=== PATIENT | male | born 1995 | race Caucasian/White ===

== ENCOUNTER 2020-05-25 19:12 | Emergency (ER) | payer MEDICAID ==
--- NOTE | 2020-05-25 20:10 | EDM.PDOC ---
<Oscar Bui - Last Filed: 05/25/20 23:09> ED HPI GENERAL MEDICAL PROBLEM - General Chief Complaint: Gastrointestinal Problem Stated Complaint: VOMITTING BLOOD Time Seen by Provider: 05/25/20 19:14 - Related Data Allergies Allergy/AdvReac Type Severity Reaction Status Date / Time No Known Allergies Allergy Verified 05/25/20 20:10 Home Meds: Home Meds . [No Known Home Meds] 05/25/20 [History] Course - Re-Assessments/Exams Free Text/Narrative Re-Assessment/Exam: 05/25/20 23:09 Dr. Burden at [facility] agrees for transfer. Departure - Departure Time of Disposition: 23:09 Disposition: DC/Tfer to [facility] 02 Clinical Impression: Chronic alcohol use Hematemesis Qualifiers: Nausea presence: with nausea Qualified Code(s): K92.0 - Hematemesis - Discharge Information Referrals: PCP,None [Primary Care Provider] - Forms: ED Department Discharge Critical Care Note - Critical Care Note Total Time (mins): 35 <Priya Miles - Last Filed: 05/27/20 10:07> ED HPI GENERAL MEDICAL PROBLEM - General Source of Information: Reports: Patient History Limitations: Reports: No Limitations - History of Present Illness INITIAL COMMENTS - FREE TEXT/NARRATIVE: HISTORY AND PHYSICAL: History of present illness: Patient is a 25-year-old male presenting to the ED for concerns of vomiting blood 3.5 hours prior to arrival to the ED Patient states that he is a daily alcohol user, consuming on average 1 pint of vodka per day for "at least" the last 5 years. Patient states that at around 1700 on 05/25/20 he experienced 1 episode of bright red bloody vomiting -"about a mouthful." He states that he has felt nauseous all day but denies any other symptoms. Patient denies the use of any [id number] medications to relieve his symptoms. Patient denies any history of alcohol withdrawal after abstaining from alcohol. Patient reports his last drink at around 14:00 today. Patient denies any recent head trauma or loss of consciousness. Patient denies fever, chills, chest pain, shortness of breath, or cough. Denies headache, neck stiff ness, change in vision, syncope, or near syncope. Denies abdominal pain, diarrhea, constipation, or dysuria. Has not noted any blood in urine. Patient states he has been eating and drinking appropriately -last meal reported was "eggs" at around 1000. Review of systems: As per history of present illness and below otherwise all systems reviewed and negative. Past medical history: As per history of present illness and as reviewed below otherwise noncontributory. Surgical history: As per history of present illness and as reviewed below otherwise noncontr ibutory. Social history: See social history for further information Family history: As per history of present illness and as reviewed below otherwise noncontributory. Physical exam: General: Patient is alert, oriented, and in no acute distress. Patient is mildly tremulous without tongue fasciculations. Patient sitting comfortably on exam table. Vitals stable and reviewed by me. HEENT: Atraumatic, normocephalic, pupils equal and reactive bilaterally, negative for conjunctival pallor or scleral icterus, mucous membranes moist, TMs normal bilaterally, throat clear, neck supple, nontender, trachea midline. No drooling or trismus noted. No meningeal signs. No hot potato voice noted. Lungs: Clear to auscultation, breath sounds equal bilaterally, chest nontender. Heart: S1S2, regular rate and rhythm without overt murmur Abdomen: Soft, nondistended, nontender. Negative for masses or hepatosplenomegaly. Negative for costovertebral tenderness. Pelvis: Stable nontender. Genitourinary: Deferred. Rectal: Deferred. Skin: Intact, warm, dry. No lesions or rashes noted. Extremities: Atraumatic, negative for cords or calf pain. Neurovascular unremarkable. Neuro: Awake, alert, oriented. Cranial nerves II through XII unremarkable. Cerebellum unremarkable. Motor and sensory unremarkable throughout. Exam nonfocal. Notes: Patient had another episode of bright red/dark red hematemesis at 2109. CIWA score 7. Patient declines a rectal exam / Hemoccult. Dr. Bui has assumed care of johnathan and will follow remaining diagnostics and disposition for patient. Diagnostics: CBC, CMP, lipase, type and screen, Repeat H&H, UA Therapeutics: Banana bag, Zofran, Protonix, octreotide, Rocephin Prescription: Impression: Hematemesis Plan: Definitive disposition and diagnosis as appropriate pending reevaluation and review of above. ED ROS GENERAL - Review of Systems Review Of Systems: Comprehensive ROS is negative, except as noted in HPI. ED EXAM, GENERAL - Physical Exam Exam: See Below (see dictation) Course - Vital Signs Last Recorded V/S: Last Vital Signs Temp 97.9 F 05/25/20 20:11 Pulse 84 05/26/20 00:10 Resp 18 05/26/20 00:10 BP 126/84 05/26/20 00:10 Pulse Ox 96 05/26/20 00:10 - Orders/Labs/Meds Labs: Laboratory Tests 05/25/20 05/25/20 05/25/20 Range/Units 00:01 20:59 20:59 WBC 6.86 (4.0-11.0) K/uL RBC 4.90 (4.50-5.90) M/uL Hgb 16.7 (13.0-17.0) g/dL Hct 47.8 (38.0-50.0) % MCV 97.6 (80.0-98.0) fL MCH 34.1 H (27.0-32.0) pg MCHC 34.9 (31.0-37.0) g/dL RDW Std Deviation 49.3 (28.0-62.0) fl RDW Coeff of Placido 14 (11.0-15.0) % Plt Count 194 (150-400) K/uL MPV 9.90 (7.40-12.00) fL Neut % (Auto) 68.5 (48.0-80.0) % Lymph % (Auto) 21.4 (16.0-40.0) % [place] % (Auto) 9.3 (0.0-15.0) % Eos % (Auto) 0.4 (0.0-7.0) % Baso % (Auto) 0.4 (0.0-1.5) % Neut # (Auto) 4.7 (1.4-5.7) K/uL Lymph # (Auto) 1.5 (0.6-2.4) K/uL [place] # (Auto) 0.6 (0.0-0.8) K/uL Eos # (Auto) 0.0 (0.0-0.7) K/uL Baso # (Auto) 0.0 (0.0-0.1) K/uL Nucleated RBC % 0.0 /100WBC Nucleated RBCs # 0 K/uL Sodium 140 (136-148) mmol/L Potassium 3.5 (3.5-5.1) mmol/L Chloride 98 (98-107) mmol/L Carbon Dioxide 24.1 (21.0-32.0) mmol/L BUN 9 (7.0-18.0) mg/dL Creatinine 1.2 (0.8-1.3) mg/dL Est Cr Clr Drug Dosing 105.42 mL/min Estimated GFR (MDRD) > 60.0 ml/min Glucose 86 (74-106) mg/dL Calcium 9.5 (8.5-10.1) mg/dL Total Bilirubin 0.7 (0.2-1.0) mg/dL AST 103 H (15-37) IU/L ALT 121 H (14-63) IU/L Alkaline Phosphatase 57 (46-116) U/L Total Protein 8.3 H (6.4-8.2) g/dL Albumin 4.7 (3.4-5.0) g/dL Globulin 3.6 (2.6-4.0) g/dL Albumin/Globulin Ratio 1.3 (0.9-1.6) Lipase 87 (73-393) U/L Urine Opiates Screen NEGATIVE (NEGATIVE) Ur Oxycodone Screen NEGATIVE (NEGATIVE) Urine Methadone Screen NEGATIVE (NEGATIVE) Ur Barbiturates Screen NEGATIVE (NEGATIVE) Ur Phencyclidine Scrn NEGATIVE (NEGATIVE) Ur Amphetamine Screen NEGATIVE (NEGATIVE) U Methamphetamines Scrn NEGATIVE (NEGATIVE) U Benzodiazepines Scrn NEGATIVE (NEGATIVE) U Cocaine Metab Screen NEGATIVE (NEGATIVE) U Marijuana (THC) Screen NEGATIVE (NEGATIVE) SARS-CoV-2 RNA (ALONZO) (NEGATIVE) Blood Type Antibody Screen 05/25/20 05/25/20 05/25/20 Range/Units 21:50 21:50 22:18 WBC (4.0-11.0) K/uL RBC (4.50-5.90) M/uL Hgb 14.9 (13.0-17.0) g/dL Hct 43.7 (38.0-50.0) % MCV (80.0-98.0) fL MCH (27.0-32.0) pg MCHC (31.0-37.0) g/dL RDW Std Deviation (28.0-62.0) fl RDW Coeff of Placido (11.0-15.0) % Plt Count (150-400) K/uL MPV (7.40-12.00) fL Neut % (Auto) (48.0-80.0) % Lymph % (Auto) (16.0-40.0) % [place] % (Auto) (0.0-15.0) % Eos % (Auto) (0.0-7.0) % Baso % (Auto) (0.0-1.5) % Neut # (Auto) (1.4-5.7) K/uL Lymph # (Auto) (0.6-2.4) K/uL [place] # (Auto) (0.0-0.8) K/uL Eos # (Auto) (0.0-0.7) K/uL Baso # (Auto) (0.0-0.1) K/uL Nucleated RBC % /100WBC Nucleated RBCs # K/uL Sodium (136-148) mmol/L Potassium (3.5-5.1) mmol/L Chloride (98-107) mmol/L Carbon Dioxide (21.0-32.0) mmol/L BUN (7.0-18.0) mg/dL Creatinine (0.8-1.3) mg/dL Est Cr Clr Drug Dosing mL/min Estimated GFR (MDRD) ml/min Glucose (74-106) mg/dL Calcium (8.5-10.1) mg/dL Total Bilirubin (0.2-1.0) mg/dL AST (15-37) IU/L ALT (14-63) IU/L Alkaline Phosphatase (46-116) U/L Total Protein (6.4-8.2) g/dL Albumin (3.4-5.0) g/dL Globulin (2.6-4.0) g/dL Albumin/Globulin Ratio (0.9-1.6) Lipase (73-393) U/L Urine Opiates Screen (NEGATIVE) Ur Oxycodone Screen (NEGATIVE) Urine Methadone Screen (NEGATIVE) Ur Barbiturates Screen (NEGATIVE) Ur Phencyclidine Scrn (NEGATIVE) Ur Amphetamine Screen (NEGATIVE) U Methamphetamines Scrn (NEGATIVE) U Benzodiazepines Scrn (NEGATIVE) U Cocaine Metab Screen (NEGATIVE) U Marijuana (THC) Screen (NEGATIVE) SARS-CoV-2 RNA (ALONZO) NEGATIVE (NEGATIVE) Blood Type O POSITIVE Antibody Screen NEGATIVE Meds: Medications Discontinued Medications Generic Name Dose Route Start Last Admin Trade Name Freq PRN Reason Stop Dose Admin Multivitamins/Minerals 10 ml/ 1,011.2 mls @ 500 mls/hr 05/25/20 20:45 05/25/20 21:12 Thiamine HCl 100 mg/ Folic IV 05/25/20 22:46 500 mls/hr Acid 1 mg/ Sodium Chloride ONETIME ONE Administration Pantoprazole Sodium 80 mg/ 20 mls @ 420 mls/hr 05/25/20 20:47 05/25/20 21:04 Sodium Chloride IVPUSH 05/25/20 20:49 420 mls/hr ONETIME ONE Administration Octreotide Acetate 500 mcg/ 500 mls @ 50 mls/hr 05/25/20 21:30 05/25/20 22:07 Sodium Chloride IV 50 mcg/hr Q10H VALENCIA 50 mls/hr Administration 50 MCG/HR Ceftriaxone Sodium/Dextrose 1 50 mls @ 100 mls/hr 05/25/20 21:25 05/25/20 21:49 gm/ Premix IV 05/25/20 21:54 100 mls/hr ONETIME ONE Administration Lorazepam 1 mg 05/25/20 22:30 05/25/20 22:49 Lorazepam 2 Mg/Ml Sdv IVPUSH 05/25/20 22:31 1 mg ONETIME ONE Administration Octreotide Acetate 50 mcg 05/25/20 21:24 05/25/20 22:08 Octreotide 50 Mcg/1 Ml Amp IV 05/25/20 21:25 50 mcg ONETIME ONE Administration Ondansetron HCl 4 mg 05/25/20 20:47 05/25/20 21:02 Ondansetron 4 Mg/2 Ml Sdv IVPUSH 05/25/20 20:48 4 mg ONETIME ONE Administration Sodium Chloride 10 ml 05/25/20 20:44 05/25/20 21:03 Sodium Chloride 0.9% 10 Ml Syringe FLUSH 10 ml ASDIRECTED PRN Administration Keep Vein Open Sodium Chloride 2.5 ml 05/25/20 20:44 05/25/20 21:03 Sodium Chloride 0.9% 2.5 Ml Syringe FLUSH 2.5 ml ASDIRECTED PRN Administration Keep Vein Open
[2020-05-25] MEDS ORDERED: Sodium Chloride 0.9% 10 ML Syringe FLUSH PRN (20:44)
[2020-05-25] MEDS ORDERED: Sodium Chloride 0.9% 2.5 ML Syringe FLUSH PRN (20:44)
[2020-05-25] MEDS ORDERED: MVI, Adult with Vitamin K 10 ML, Thiamine 100 MG, Folic Acid 1 MG in Sodium Chloride 0.... IV ONE ×4 (20:45)
[2020-05-25] MEDS ORDERED: Ondansetron 4 MG/2 ML SDV IVPUSH ONE (20:47)
[2020-05-25] MEDS ORDERED: Pantoprazole 80 MG in Sodium Chloride 0.9% 20 ML IVPUSH ONE (20:47)
[2020-05-25 21:23] LABS: BLOOD UREA NITROGEN,BUN 9 mg/dL (7.0-18.0); CHLORIDE,CL 98 mmol/L (98-107); GLUCOSE RANDOM 86 mg/dL (74-106); LIPASE 87 U/L (73-393); POTASSIUM,K 3.5 mmol/L (3.5-5.1); SODIUM,NA 140 mmol/L (136-148)
[2020-05-25] MEDS ORDERED: Octreotide 50 MCG/1 ML Amp IV ONE (21:24)
[2020-05-25] MEDS ORDERED: cefTRIAXone 1 GM in Premix Bag 1 BAG IV ONE (21:25)
[2020-05-25 21:27] LABS: CARBON DIOXIDE,CO2 24.1 mmol/L (21.0-32.0)
[2020-05-25] MEDS ORDERED: Octreotide 500 MCG in Sodium Chloride 0.9% 495 ML IV SCH (21:30)
[2020-05-25] MEDS ORDERED: LORazepam 2 MG/ML SDV IVPUSH ONE (22:30)
== END 2020-05-26 00:23 ==
LOC: MW.ED 19:12
DX: K92.0 Hematemesis (principal); F10.20 Alcohol dependence, uncomplicated; Z20.822 Contact with and (suspected) exposure to COVID-19
CPT/HCPCS: 36415; 80053; 80305; 83690; 85014; 85018; 85025; 86850; 86900; 86901; 87635; 96365; 96366; 96367; 96375; 99285; C9113; J0696; J2060; J2354; J2405; J3411; J7030; J7040; 99291; U0002